=== PATIENT | male | born 1995 | race Caucasian/White ===

== ENCOUNTER 2019-06-11 13:57 | Emergency (ER) | payer MEDICAID, OTHER ==
[~2019-06-11] VITALS: Ht 170.2 cm; Wt 68.2 kg
[2019-06-11 15:13] LABS: URINE AMPHETAMINE SCREEN NEGATIVE (Neg); URINE BARBITUATE SCREEN NEGATIVE (Neg); URINE BENZODIAZEPINES SCREEN NEGATIVE (Neg); URINE CANNABINOID SCREEN POSITIVE (Neg); URINE COCAINE SCREEN NEGATIVE (Neg); URINE METHADONE SCREEN NEGATIVE (Neg); URINE OPIATE SCREEN NEGATIVE (Neg); URINE PHENCYCLIDINE SCREEN NEGATIVE (Neg)
[2019-06-11 16:05] LABS: CLARITY,URINE SLIGHTLY CLOUDY (Clear); COLOR,URINE YELLOW (Yellow); GLUCOSE, URINE NEGATIVE (Neg); KETONES,URINE >=80 mg/dl (Neg); LEUKOCYTE ESTERASE ,URINE NEGATIVE (Neg); NITRITES, URINE NEGATIVE (Neg); OCCULT BLOOD,URINE NEGATIVE (Neg); PROTEIN,URINE TRACE mg/dl (Neg); UROBILINOGEN,URINE 0.2 E.U/dL (0.2-1.0)
[2019-06-11 16:06] LABS: UA COLLECTION TYPE VOIDED
[2019-06-11 16:06] LABS: BASOPHILS % (AUTO) 0.3 % (0-1); EOSINOPHILS % (AUTO) 0.1 % (0-6); HEMATOCRIT 44.5 % (42.0-52.0); HEMOGLOBIN 15.3 g/dl (14.0-17.9); LYMPHOCYTES # (AUTO) 1.1 X10'3 (1.1-4.8); LYMPHOCYTES % (AUTO) 10.2 % (21-51); MEAN CORPUSCULAR HGB CONC 34.3 g/dL (33.0-36.5); MEAN CORPUSCULAR VOLUME 90.4 FL (78-98); MEAN PLATELET VOLUME 9.2 FL (7.4-10.4); MONOCYTES # (AUTO) 0.6 X10'3 (0-0.9); MONOCYTES % (AUTO) 5.4 % (2-12); NEUTROPHILS # (AUTO) 9.1 X10'3 (1.8-7.7); PLATELET COUNT 302 X10'3 (140-440); RED BLOOD COUNT 4.92 X10'6 (4.70-6.10); RED CELL DISTRIBUTION WIDTH 13.5 % (11.5-14.5); WHITE BLOOD COUNT 10.9 X10'3 (4.5-11.0)
[2019-06-11 16:14] LABS: BACTERIA,URINE NONE SEEN /HPF (Neg); CAL OXALATE CRYSTALS 4+ /HPF (NEGATIVE); HYALINE CASTS 0-3 /LPF (NEGATIVE); MUCUS STRANDS MANY /LPF (Neg); RBC,URINE NONE SEEN /HPF (0-2); SQUAMOUS EPITHELIAL CELL,UR FEW /LPF (FEW); WBC,URINE 0-4 /HPF (0-4)
[2019-06-11 16:15] LABS: TRANSITIONAL EPI CELLS,URINE FEW /HPF
[2019-06-11 16:17] LABS: ALANINE AMINOTRANSFERASE 20 U/L (12-78); ALBUMIN 4.7 G/DL (3.4-5.0); ALBUMIN/GLOBULIN RATIO 1.5 (1.1-1.5); ALKALINE PHOSPHATASE 56 IU/L (46-116); ANION GAP 12 (8-16); ASPARTATE AMINO TRANSFERASE 9 U/L (10-37); BILIRUBIN,TOTAL 0.4 MG/DL (0.1-1.0); BLOOD UREA NITROGEN 13 MG/DL (7-18); BUN/CREATININE RATIO 12.9 (5.4-32.0); CALCIUM 9.6 MG/DL (8.5-10.1); CHLORIDE 107 MMOL/L (99-107); CREATININE 1.01 MG/DL (0.60-1.10); GLUCOSE 129 MG/DL (70-104); POTASSIUM 3.6 MMOL/L (3.5-5.1); SODIUM 142 MMOL/L (135-145); TOTAL CARBON DIOXIDE 22.8 MMOL/L (24-32); TOTAL PROTEIN 7.8 G/DL (6.4-8.2); eGFR > 90 ML/MIN
--- NOTE | 2019-06-11 19:30 | NUR ---
Patient is awake and well oriented. He has finished all his dinner. Patient complains of depression. He admits to suicidal ideation, "I'm just to lazy to try." [place] He had lived with his uncle but states his uncle has told him that he didn't care if he or not. Patients affect is blunted. He makes direct eye contact. He has no S/I plan at this point. Patient denies H/I or hallucinations. Patients bed is in direct view from the nursing station.
--- NOTE | 2019-06-12 00:21 | NUR ---
Patient has been sleeping quietly all night. His bed is in direct view from the nursing station.
--- NOTE | 2019-06-12 02:26 | NUR ---
PT LAYING ON SIDE IN BED SLEEPING. RR WNL-NO DISTRESS. WILL CONTINUE TO MONITOR.
--- NOTE | 2019-06-12 02:37 | NUR ---
PT PACKET FAXED TO [facility]
--- NOTE | 2019-06-12 09:51 | NUR ---
RELIEVING RN FOR BREAK, PT WAS IN RESTROOM FOR PERSONAL HYGIENE
--- NOTE | 2019-06-12 11:20 | NUR ---
[facility] WORKER STATES SHE WILL BEGIN THE PAPER WORK TO FIND PLACEMENT FOR PATIENT.
--- NOTE | 2019-06-12 12:42 | NUR ---
[facility]
--- NOTE | 2019-06-12 13:04 | NUR ---
RELIEVING RN FOR LUNCH, PT IS EATING LUNCH, ANNE [facility]IE WE[facility], NO N/V, PT HAS BEEN ACCEPTED AT [facility], [employer] WILL BE HERE APPROX [id number]
--- NOTE | 2019-06-12 13:06 | NUR ---
DR VÁZQUEZ IS ACCEPTING MD AT [facility]
--- NOTE | 2019-06-12 18:04 | NUR ---
YOGESH FROM [facility] CALL TO REPORT STICK PULLER FOR ACCEPTANCE AT [facility] AT 7:30 PM
--- NOTE | 2019-06-12 19:41 | NUR ---
Patient finished his dinner. Patient is well oriented. His affect is blunt. He states he still has suicidal ideation, "I'm thinking about jumping off a bridge." Patient denies hallucinations or homicidal ideation. Patients speech is soft, rate is normal. The patient states depression is his major problem now.
--- NOTE | 2019-06-12 19:44 | NUR ---
[facility] is here to transport patient to [facility].
[2019-06-12 19:48] VITALS: BP 107/65
== END 2019-06-12 19:52 ==
LOC: ER 13:57
DX: R45.851 Suicidal ideations (principal); Z59.0 Homelessness
CPT/HCPCS: 36415; 80053; 80305; 80320; 81001; 85025; 99283; 99285